=== PATIENT | female | born 1980 | race Hispanic/Latino ===

== ENCOUNTER 2019-07-25 | Emergency (ER) | payer SELFPAY ==
[~2019-07-25] MED LIST: LORTAB 7.5-3251 TAB PO; MOTRIN800 MG PO; NO HOME MEDS; PRENATAL1 TA1
[2019-07-25 15:13] LABS: URINE BILIRUBIN - DIPSTICK NEGATIVE (NEGATIVE); URINE BLOOD DIPSTICK NEGATIVE (NEGATIVE); URINE COLOR YELLOW; URINE GLUCOSE - DIPSTICK NEGATIVE (NEGATIVE); URINE KETONE NEGATIVE (NEGATIVE); URINE LEUK ESTERASE NEGATIVE (NEGATIVE); URINE NITRITE - DIPSTICK NEGATIVE (Negative); URINE PROTEIN - DIPSTICK NEGATIVE (NEG-TRACE); URINE UROBILINOGEN - DIPSTICK 0.2 E.U./dL (0.2)
[2019-07-25] MEDS ORDERED: PREDNISONE10 MG PO (17:18)
== END 2019-07-25 17:30 | disposition home or self-care (01) | DRG 552 ==
DX: M54.42 Lumbago with sciatica, left side (principal); M54.41 Lumbago with sciatica, right side